=== PATIENT | female | born 1970 | race Caucasian/White ===

== ENCOUNTER 2017-10-27 13:40 | Emergency (ER) | payer BC ==
[2017-10-27 13:57] VITALS: BP 150/92
--- NOTE | 2017-10-27 14:22 | UC ---
Back Pain HPI - HPI Summary HPI Summary: lower back pain x 1 week no known injury , no radiation of the pain , increase pain with movement, no dysuria, no lower ext weakness - History of Current Complaint Chief Complaint: UCBackPain Stated Complaint: LOW BACK PAIN Time Seen by Provider: 10/27/17 14:13 Hx Obtained From: Patient Hx Last Menstrual Period: 10/17/13 Onset/Duration: Gradual Onset, Lasting Days - 7, Still Present Timing: Constant, Lasting Days - 7 Severity Initially: Moderate Severity Currently: Moderate Pain Intensity: 8 Back Pain: Is Discrete @ - mid lower back Character: Aching Aggravating Factor(s): Movement, Bending Associated Signs And Symptoms: Negative: Swelling, Redness, Bruising, Fever, Weakness, Numbness, Tingling, Abdominal Pain, Flank Pain, Bladder Incontinence, Bowel Incontinence, Weight Loss, Pain with Weight Bearing - Allergies/Home Medications Allergies/Adverse Reactions: Allergies Allergy/AdvReac Type Severity Reaction Status Date / Time No Known Allergies Allergy Verified 10/27/17 13:57 PMH/Surg Hx/FS Hx/Imm Hx Previously Healthy: Yes - Surgical History Surgical History: Yes Surgery Procedure, Year, and Place: cataract surgery- 2011. DETACHED RETINA 1991-NO METAL-SCANNED REPORT INTO PTS FILE - Family History Known Family History: Negative: Diabetes - Social History Alcohol Use: Occasionally Substance Use Type: None Smoking Status (MU): Never Smoked Tobacco - Immunization History Most Recent Influenza Vaccination: not this season Review of Systems Constitutional: Negative Skin: Negative Eyes: Negative ENT: Negative Respiratory: Negative Cardiovascular: Negative Gastrointestinal: Negative Genitourinary: Negative Is Patient Immunocompromised?: No All Other Systems Reviewed And Are Negative: Yes Physical Exam Triage Information Reviewed: Yes Appearance: Well-Appearing, No Pain Distress, Well-Nourished Vital Signs: Initial Vital Signs Temp 98.4 F 10/27/17 13:54 Pulse 81 10/27/17 13:54 Resp 18 10/27/17 13:54 BP 150/92 10/27/17 13:54 Pulse Ox 99 10/27/17 13:54 Vital Signs Reviewed: Yes Eye Exam: Normal Eyes: Positive: Conjunctiva Clear ENT: Positive: Normal ENT inspection, Hearing grossly normal, Pharynx normal Neck exam: Normal Neck: Positive: Supple, Nontender, No Lymphadenopathy Respiratory: Positive: Chest non-tender, Lungs clear, Normal breath sounds Cardiovascular: Positive: RRR, No Murmur, Pulses Normal Abdomen Description: Positive: Nontender, Soft. Negative: CVA Tenderness (R), CVA Tenderness (L), Distended, Guarding Bowel Sounds: Positive: Present Musculoskeletal: Positive: Strength Intact, Other: - lower back : no swelling, no erythema, no focal tenderness pain with flexion , normal ROM Skin Exam: Normal Back Pain Course/Dx - Differential Dx/Diagnosis Provider Diagnoses: lower back strain Discharge - Discharge Plan Condition: Stable Disposition: HOME Prescriptions: Cyclobenzaprine TAB* [Flexeril 10 MG TAB*] 10 mg PO BID #20 tab Naproxen [Naproxen 500 mg] 500 mg PO BID #20 tab Patient Education Materials: Low Back Strain (ED) Referrals: MELE Dykes [Primary Care Provider] - If Needed
== END 2017-10-27 14:32 | disposition home or self-care (01) ==
LOC: UCCORT 13:40
DX: S39.012A Strain of muscle, fascia and tendon of lower back, initial encounter (principal); X58.XXXA Exposure to other specified factors, initial encounter
CPT/HCPCS: 81003; 99212; G0463

== ENCOUNTER 2017-11-05 11:05 | Emergency (ER) | payer BC ==
[2017-11-05 12:10] VITALS: BP 121/80
--- NOTE | 2017-11-05 12:58 | ED ---
Lower Extremity - HPI Summary HPI Summary: 47 yr old female with the complaint of left foot pain, swelling, redness, and mild nausea. Onset yesterday. She had a pedicure late last week, nails cut, and painted at a hair/nail salon. She complains of redness to the top of the left foot toes 2,3,4 and proximally on the dorsum of this foot. She denies trauma or injury otherwise. No fever. She has some discomfort walking on this. - History of Current Complaint Chief Complaint: UCSkin Stated Complaint: LEFT FOOT COMPLAINT Time Seen by Provider: 11/05/17 12:36 Hx Last Menstrual Period: 10/21/17 Pain Intensity: 8 - Allergies/Home Medications Allergies/Adverse Reactions: Allergies Allergy/AdvReac Type Severity Reaction Status Date / Time No Known Allergies Allergy Verified 11/05/17 12:10 PMH/Surg Hx/FS Hx/Imm Hx Endocrine/Hematology History: Denies: Hx Diabetes Cardiovascular History: Denies: Hx Hypertension, Hx Pacemaker/ICD History: Denies: Hx Renal Disease Sensory History: Denies: Hx Hearing Aid Psychiatric History: Denies: Hx Panic Disorder - Surgical History Surgery Procedure, Year, and Place: cataract surgery- 2011. DETACHED RETINA 1991-NO METAL-SCANNED REPORT INTO PTS FILE Infectious Disease History: No Infectious Disease History: Denies: Traveled Outside the [place] in Last 30 Days - Family History Known Family History: Negative: Diabetes - Social History Alcohol Use: Occasionally Substance Use Type: Reports: None Smoking Status (MU): Never Smoked Tobacco Review of Systems Positive: Fever, Chills Positive: Nausea Positive: Other - redness dorsum of left foot All Other Systems Reviewed And Are Negative: Yes Physical Exam Triage Information Reviewed: Yes Vital Signs On Initial Exam: Initial Vitals Temp Pulse Resp BP Pulse Ox 99.8 F 99 16 121/80 100 11/05/17 12:05 11/05/17 12:05 11/05/17 12:05 11/05/17 12:05 11/05/17 12:05 Vital Signs Reviewed: Yes Appearance: Positive: Well-Appearing, No Pain Distress Skin: Positive: Warm, Skin Color Reflects Adequate Perfusion, Other - see left lower extremity Eyes: Positive: EOMI Respiratory/Lung Sounds: Positive: Other - normal respiratory effort. Cardiovascular: Positive: Pulses are Symmetrical in both Upper and Lower Extremities - good DP and PT pulse left foot Musculoskeletal: Positive: Other - Left foot dorsum with redness middle distal foot proximal to toes 2,3,4. No lacerations, or abrasions on the foot or toes. She has no paronychia. She has no crepitance, no blisters, no drainage. There is mild STS over the area of redness. There is no FB palpated. The redness is over the distal left foot dorsum only. Plantar surface is spared entirely, and no cuts on the planatar surface. In between her toes no cuts and no abrasion or FB on inspection. The redness at most is about 2.5 by 2 inches in diameter. Neurological: Positive: Sensory/Motor Intact, Alert, Oriented to Person Place, Time, CN Intact II-III Diagnostics - Vital Signs Vital Signs Temp Pulse Resp BP Pulse Ox 11/05/17 12:05 99.8 F 99 16 121/80 100 - Laboratory Lab Statement: Any lab studies that have been ordered have been reviewed, and results considered in the medical decision making process. Lower Extremity Course/Dx - Course Course Of Treatment: 47 yr old with cellulitis to the foot after a pedicure. She has no MRSA history but Since she was in a public salon I will cover her for MRSA with bactrim. DC to home in good condition. She took motrin on an empty stomach which made her nauseated. Will give her zofran as well for nausea. FU with PMD. For any worsening symptoms she should go to the ER for further evaluation and treatment. - Diagnoses Provider Diagnoses: Cellulitis of foot, left Discharge - Discharge Plan Condition: Good Disposition: HOME Prescriptions: Ondansetron TAB* [Zofran 4 MG Tab*] 4 mg PO Q6H PRN #10 tab PRN Reason: Nausea Sulfamethox/Trimethoprim DS* [Bactrim DS 800/160 TAB*] 1 tab PO BID #20 tab Patient Education Materials: Cellulitis (ED) Referrals: MELE Dykes [Primary Care Provider] - 2 Days
== END 2017-11-05 13:09 | disposition home or self-care (01) ==
LOC: UCCORT 11:05
DX: L03.116 Cellulitis of left lower limb (principal)
CPT/HCPCS: 99212; G0463

== ENCOUNTER 2019-07-07 18:26 | Emergency (ER) | payer BC ==
[2019-07-07 19:36] VITALS: BP 142/89
--- NOTE | 2019-07-07 20:13 | UC ---
Throat Pain/Nasal Cooper HPI - HPI Summary HPI Summary: 49 y/o female presents to the urgent care c/o sever nasal congestion, sinus pain , LOPEZ and green nasal discharge for the past 2 weeks. She was Dx w/ Bronchitis on 06/30/2019 at [facility] and Rx Amoxicillin PO. However she has Hx of chronic sinusitis in the past and symptoms have not resolved. Now worsen for the past 5 days. LOPEZ is 7/10 and she has been taken Sudafed PO w/o any improvement.Today, she has exprience body aches, but not fever. She denies SOB, dizziness, chest pain, abdominal pain, N/V/D. - History of Current Complaint Chief Complaint: UCGeneralIllness Stated Complaint: HEADACHE,POSSIBLE SINUS INFECTION Time Seen by Provider: 07/07/19 20:10 Hx Obtained From: Patient Hx Last Menstrual Period: 10/21/17 ?: No Onset/Duration: Gradual Onset, Lasting Weeks - 1 week, Still Present, Worse Since - 3 days Severity: Moderate Pain Intensity: 7 - body aches, LOPEZ Pain Scale Used: 0-10 Numeric Cough: Nonproductive Associated Signs & Symptoms: Positive: Sinus Discomfort, Nasal Discharge - yellowish, Fever. Negative: Wheezing - Epiglottits Risk Factors Epiglottis Risk Factors: Negative - Allergies/Home Medications Allergies/Adverse Reactions: Allergies Allergy/AdvReac Type Severity Reaction Status Date / Time No Known Allergies Allergy Verified 07/07/19 19:33 Home Medications: Home Medications Pseudoephedrine TAB* [Sudafed TAB*] 60 mg PO Q6H PRN 07/07/19 [History Confirmed 07/07/19] PMH/Surg Hx/FS Hx/Imm Hx Previously Healthy: Yes - Pt denies PMHX - Surgical History Surgical History: Yes Surgery Procedure, Year, and Place: cataract surgery- 2011. DETACHED RETINA 1991-NO METAL-SCANNED REPORT INTO PTS FILE - Family History Known Family History: Positive: None - PT denies FMHX Negative: Diabetes - Social History Occupation: Employed Full-time Lives: With Family Alcohol Use: Occasionally Substance Use Type: None Smoking Status (MU): Never Smoked Tobacco - Immunization History Most Recent Influenza Vaccination: not this season Review of Systems All Other Systems Reviewed And Are Negative: Yes Constitutional: Positive: Fever, Chills, Other - body aches Skin: Positive: Negative Eyes: Positive: Negative ENT: Positive: Nasal Discharge - yellowish, Sinus Congestion, Sinus Pain/ Tenderness, Other - PND Respiratory: Positive: Cough - dry Cardiovascular: Positive: Negative Gastrointestinal: Positive: Negative Genitourinary: Positive: Negative Motor: Positive: Negative Neurovascular: Positive: Negative Musculoskeletal: Positive: Myalgia Neurological: Positive: Headache Psychological: Positive: Negative Is Patient Immunocompromised?: No Physical Exam - Summary Physical Exam Summary: VITAL SIGNS: Reviewed. GENERAL: Patient is a well developed and nourished female who is sitting comfortably in the examining table. Patient is not in any acute respiratory distress. HEAD AND FACE: No signs of trauma. No ecchymosis, hematomas or skull depressions. maxillary and frontal sinus tenderness. EYES: PERRLA, EOMI x 2, No injected conjunctiva, no nystagmus. No photophobia. EARS: Hearing grossly intact. Ear canals and tympanic membranes are within normal limits. MOUTH: Positive pharynx with mild erythema, no exudates, No B/L tonsillar enlargement , no exudate. Uvula in midline. edematous nasal mucosa w/ green nasal discharge, green PND NECK: Supple, trachea is midline, Positive anterior cervical lymphadenopathy, no JVD, no carotid bruit, no c-spine tenderness, neck with full ROM. No meningeal signs, no Kernig's or brudzinskis signs. CHEST: Symmetric, no tenderness at palpation LUNGS: Clear to auscultation bilaterally. No wheezing or crackles. CVS: Regular rate and rhythm, S1 and S2 present, no murmurs or gallops appreciated. ABDOMEN: Soft, non-tender. No signs of distention. No rebound no guarding, and no masses palpated. Bowel sounds are normal. EXTREMITIES: FROM in all major joints, no edema, no cyanosis or clubbing. NEURO: Alert and oriented x 3. No acute neurological deficits. Pt follows commands. SKIN: Dry and warm Triage Information Reviewed: Yes Vital Signs: Initial Vital Signs Temp 100.4 F 07/07/19 19:31 Pulse 89 07/07/19 19:31 Resp 17 07/07/19 19:31 BP 142/89 07/07/19 19:31 Pulse Ox 99 07/07/19 19:31 Throat Pain/Nasal Course/Dx - Course Course Of Treatment: 49 y/o female presents to the urgent care c/o sever nasal congestion, sinus pain , LOPEZ and green nasal discharge for the past 2 weeks. She was Dx w/ Bronchitis on 06/30/2019 at [facility] and Rx Amoxicillin PO. However she has Hx of chronic sinusitis in the past and symptoms have not resolved. Now worsen for the past 5 days. LOPEZ is 7/10 and she has been taken Sudafed PO w/o any improvement.Today, she has experience body aches, but not fever. She denies SOB, dizziness, chest pain, abdominal pain, N/V/D. Hx obtained. Pt with 2 weeks of symptoms getting worse. Rapdi influenza A&B: negative. Pt Rx Augmentin PO and flonase nasal spray. Ibuprofen PO to alleviate sinus pain and LOPEZ. Pt's BP is elevated today advised to decrease salt in diet, monitor BP and f/u with PCP for further management.Discharge instructions explained to Pt. Advised to Return to the clinic or PCP if symptoms do not improve.Pt understood and agreed with plan of care. - Differential Dx/Diagnosis Differential Diagnosis/HQI/PQRI: Influenza, Laryngitis, Otitis Media, Pharyngitis, Sinusitis, URI Provider Diagnosis: Acute bacterial sinusitis, Headache, Elevated BP without diagnosis of hypertension Discharge ED - Sign-Out/Discharge Documenting (check all that apply): Patient Departure - d/c home All imaging exams completed and their final reports reviewed: No Studies - Discharge Plan Condition: Stable Disposition: HOME Prescriptions: Amoxicillin/Clavulanate TAB* [Augmentin TAB 875*] 875 mg PO BID #19 tab Fluticasone NASAL SPRAY 50MCG* [Flonase NASAL SPRAY 50MCG*] 2 spray BOTH NARES DAILY #1 btl Ibuprofen TAB* [Motrin TAB* 800 MG] 800 mg PO Q6H PRN #30 tab PRN Reason: Pain - Moderate Patient Education Materials: Sinusitis (ED) Forms: *Work Release Referrals: Adan Prescott-MD Carmencita [Primary Care Provider] - 3 Days Additional Instructions: 1- Please stop taking Amoxicillin PO and start taking Augmentin the full course of the antibiotic to avoid resistance.Take yogurts w/ probiotics or Culturelle to protect your GI system 2-Please take ibuprofen PO q6-8hrs prn as instructed after meals to alleviate pain and swelling. Increase fluid intake, eat well, rest and avoid strenuous exercise 3-Use Flonase as directed to help drain fluid. Also buy saline drops to clear sinuses 4-Continue taking Sudafed PO to alleviates sinus congestion 4-Please f/u w/ your PCP in 3 days if symptoms do not improve for further management and treatment - Billing Disposition and Condition Condition: STABLE Disposition: Home
[2019-07-07] MEDS ORDERED: Ibuprofen TAB* 400 MG PO ONE (20:31)
[2019-07-07 20:45] LABS: Influenza A Molecular NEGATIVE (Negative); Influenza B Molecular NEGATIVE (Negative)
[2019-07-07] MEDS ORDERED: Amoxicillin/Clavulanate TAB* 875 MG PO ONE (20:58)
== END 2019-07-07 21:16 | disposition home or self-care (01) ==
LOC: UCCORT 18:26
DX: J01.90 Acute sinusitis, unspecified (principal); B96.89 Other specified bacterial agents as the cause of diseases classified elsewhere; R51 Headache; R03.0 Elevated blood-pressure reading, without diagnosis of hypertension
CPT/HCPCS: 99212; A9270-GY; G0463